=== PATIENT | female | born 1970 | race American Indian/Alaskan Native ===

== ENCOUNTER 2016-12-28 13:35 | Emergency (ER) | payer MEDICAID ==
[2016-12-28 14:04] VITALS: BP 135/84
[2016-12-28 14:21] LABS: Basophils % (Auto) 0.8 % (0.0-1.8); Eosinophils % (Auto) 2.4 % (0.0-4.3); Hematocrit 38.5 % (30.3-42.9); Hemoglobin 13.1 gm/dl (10.1-14.3); Mean Corpuscular HGB Conc 34 % (30-34); Mean Corpuscular Hemoglobin 30 pg (28-32); Mean Corpuscular Volume 88 fl (79-97); Platelet Count 336 K/mm3 (140-440); Red Blood Count 4.37 M/mm3 (3.65-5.03); Red Cell Distribution Width 12.1 % (13.2-15.2); White Blood Count 7.2 K/mm3 (4.5-11.0)
[2016-12-28 14:42] LABS: Anion Gap 21 mmol/L; BUN/Creatinine Ratio 11.66; Blood Urea Nitrogen 7 mg/dL (7-17); Calcium 9.3 mg/dL (8.4-10.2); Carbon Dioxide 22 mmol/L (22-30); Chloride 99.9 mmol/L (98-107); Glucose 119 mg/dL (65-100); Potassium 3.6 mmol/L (3.6-5.0); Sodium 139 mmol/L (137-145)
--- NOTE | 2017-01-01 00:48 | ED Elopement Review ---
ED Pt Elopement review - Results review Lab results: Laboratory Tests 12/28/16 12/28/16 12/28/16 14:07 14:11 16:45 WBC 7.2 RBC 4.37 Hgb 13.1 Hct 38.5 MCV 88 MCH 30 MCHC 34 RDW 12.1 L Plt Count 336 Lymph % (Auto) 30.8 Pershing % (Auto) 9.5 H Eos % (Auto) 2.4 Baso % (Auto) 0.8 Lymph # 2.2 Pershing # 0.7 Eos # 0.2 Baso # 0.1 Seg Neutrophils % 56.5 Seg Neutrophils # 4.1 Sodium 139 Potassium 3.6 Chloride 99.9 Carbon Dioxide 22 Anion Gap 21 BUN 7 Creatinine 0.6 L Estimated GFR > 60 BUN/Creatinine Ratio 11.66 Glucose 119 H Calcium 9.3 Troponin T < 0.010 < 0.010 - Call Back decision Pt Call Back Decision: No action required
== END 2016-12-28 20:15 | disposition left against medical advice (07) ==
LOC: ED 13:35
DX: R07.89 Other chest pain (principal); R06.02 Shortness of breath; Z53.21 Procedure and treatment not carried out due to patient leaving prior to being seen by health care provider
CPT/HCPCS: 36415; 80048; 84484; 85025; 93005; 93010